=== PATIENT | female | born 1935 | race Caucasian/White ===

== ENCOUNTER 2017-10-26 20:30 | Emergency (ER) | payer OTHER ==
[~2017-10-26] VITALS: Ht 167.6 cm; Wt 72.6 kg
[~2017-10-26 20:30] MED LIST: ACET325 PO; ALEN70 PO; ASPI81CH PO; BUDESONIDE EC3 MG PO; CALCIUM 600 +1 EAC1 PO; CARBI50; CEFD300; CEPH500 PO; COLE625 PO; CRANBERRY250 MG PO; DONE5 PO; FISH1000 PO; GLUC500 PO; Humalog100 UNIT/1 SC; INSLI100I; INSULANI; INSULANPEN SC; LEVSOD50 PO; LOSA25 PO; LOSHYD; MELA3 PO; NIFE30ER; NIFE90ER PO; OMEP20ER PO; PROBIOTIC1 EAC1 PO; TRAM50 PO; Ultram50 MG PO; VALS80 PO
[2017-10-26] MEDS ORDERED: DONEPEZIL HCL5 MG PO (20:49)
[2017-10-26] MEDS ORDERED: ALEN70 PO (20:50)
== END 2017-10-26 23:29 | disposition home or self-care (01) ==
LOC: ER 20:30
DX: M25.562 Pain in left knee (principal); W18.30XA Fall on same level, unspecified, initial encounter; Z79.82 Long term (current) use of aspirin; Z79.899 Other long term (current) drug therapy; Z79.4 Long term (current) use of insulin; E11.9 Type 2 diabetes mellitus without complications; I10 Essential (primary) hypertension; Z87.891 Personal history of nicotine dependence
CPT/HCPCS: 73562-LT; 99283

== ENCOUNTER 2017-11-04 17:06 | Emergency (ER) | payer OTHER ==
[~2017-11-04] VITALS: Ht 170.2 cm; Wt 66.7 kg
[~2017-11-04 17:06] MED LIST changes: -CARBI50; +Carbidopa-Levo1 EAC1 PO; +DONEPEZIL HCL5 MG PO
[2017-11-04] MEDS ORDERED: Tylenol325 MG PO (18:45)
[2017-11-04] MEDS ORDERED: HYDR1TAB94 PO (20:18)
[2017-11-06] MEDS ORDERED: INSULANPEN SC (02:49)
[2017-11-06] MEDS ORDERED: Humalog100 UNIT/3 SC (02:51)
[2017-11-06] MEDS ORDERED: GLUCERNA237 ML PO (02:55)
[2017-11-06] MEDS ORDERED: HYDROCODONE-ACET5 ML PO (02:59)
[2017-11-06] MEDS ORDERED: Tears Again15 ML RIGHTEYE (03:01)
[2017-11-06] MEDS ORDERED: REFRESH OPTIVE1 EACH LEFTEYE (03:02)
[2017-11-08] MEDS ORDERED: CEFU500T30 PO (11:39)
[2017-11-08] MEDS ORDERED: TRAM50 PO (11:43)
[2017-11-08] MEDS ORDERED: Miralax17 GM PO (11:45)
== END 2017-11-04 21:18 | disposition home or self-care (01) ==
LOC: ER 17:06
DX: M79.662 Pain in left lower leg (principal); E11.9 Type 2 diabetes mellitus without complications; I10 Essential (primary) hypertension; Z79.899 Other long term (current) drug therapy; Z79.4 Long term (current) use of insulin; Z79.82 Long term (current) use of aspirin; Z87.891 Personal history of nicotine dependence
CPT/HCPCS: 29505; 73502; 73562-RT; 93971; 99284

== ENCOUNTER 2018-04-30 12:18 | Emergency (ER) | payer OTHER ==
[~2018-04-30] VITALS: Ht 167.6 cm; Wt 67.1 kg
[~2018-04-30 12:18] MED LIST changes: +CEFU500T30 PO; +GLUCERNA237 ML PO; +HYDR1TAB94 PO; +HYDROCODONE-ACET5 ML PO; +Humalog100 UNIT/1; +Humalog100 UNIT/3 SC; +INSULANPEN IM; +LOSA50 PO; +Miralax17 GM PO; +Multivitamin1 EAC1 PO; +NATURAL BALANCE15 ML RIGHTEYE; +PREVALITE PAC4 G/PKT PO; +REFRESH OPTIVE1 EACH LEFTEYE; +Tears Again15 ML RIGHTEYE; +Tylenol325 MG PO; +Vitamin D400 UNI2 PO
[2018-04-30 12:52] LABS: BASOPHILS ABSOLUTE AUTO 0.05 K/mm3 (0.00-0.23); BASOPHILS PERCENT AUTO 1 % (0-2); EOSINOPHILS ABSOLUTE AUTO 0.11 K/mm3 (0.00-0.68); EOSINOPHILS PERCENT AUTO 1 % (0-6); Hematocrit 40.7 % (33.0-51.0); Hemoglobin 13.5 g/dL (11.5-16.0); IMMATURE GRAN ABSOLUTE AUTO 0.03 K/mm3 (0.00-0.10); IMMATURE GRAN PERCENT AUTO 0 % (0-1); LYMPHOCYTES ABSOLUTE AUTO 2.26 K/mm3 (0.84-5.20); LYMPHOCYTES PERCENT AUTO 28 % (21-46); MONOCYTES ABSOLUTE AUTO 0.48 K/mm3 (0.16-1.47); MONOCYTES PERCENT AUTO 6 % (4-13); Mean Corpuscular HGB 32.8 pg (26.0-34.0); Mean Corpuscular HGB Conc 33.2 g/dL (31.5-36.5); Mean Corpuscular Volume 99 fL (80-100); Mean Platelet Volume 10.5 fL (9.1-12.4); NEUTROPHILS ABSOLUTE AUTO 5.05 K/mm3 (1.96-9.15); NEUTROPHILS PERCENT AUTO 63 % (41-73); Platelet Count 319 K/mm3 (150-400); RDW Coefficient Variation 13.7 % (11.7-14.2); RDW Standard Deviation 49.8 fL (35.1-46.3); Red Blood Cell Count 4.11 M/mm3 (3.80-5.20); White Blood Cell Count 7.98 K/mm3 (4.00-11.30)
[2018-04-30 13:07] LABS: Alanine Aminotransfer (ALT/SGP 11 U/L (12-78); Albumin, Blood 3.2 g/dL (3.4-5.0); Albumin/Globulin Ratio 0.9 (0.8-1.8); Alk Phos 68 U/L (50-136); Anion Gap 8 mmol/L (6-16); Aspartate Aminotrans (AST/SGOT 11 U/L (12-37); Bilirubin, Total 0.5 mg/dL (0.1-1.0); Blood Urea Nitrogen 10 mg/dL (8-24); Bun/Creatinine Ratio 16.1 (12.0-20.0); CO2, Blood 26 mmol/L (21-32); Calcium, Blood 8.7 mg/dL (8.5-10.1); Chloride, Blood 105 mmol/L (98-108); Creatinine, Blood 0.62 mg/dL (0.40-1.00); Globulin, Blood 3.7 g/dL (2.2-4.0); Glomerular Filtration Rate >60 (60-); Glucose, Blood 217 mg/dL (70-99); Potassium, Blood 3.8 mmol/L (3.5-5.5); Sodium, Blood 139 mmol/L (136-145); Total Protein, Blood 6.9 g/dL (6.4-8.2); Troponin I <0.015 ng/mL (0.000-0.040)
== END 2018-04-30 16:55 | disposition home or self-care (01) ==
LOC: ER 12:18
PROVIDERS: Physician Assistant
DX: R07.9 Chest pain, unspecified (principal); Z79.899 Other long term (current) drug therapy; Z79.82 Long term (current) use of aspirin; Z79.4 Long term (current) use of insulin; E11.9 Type 2 diabetes mellitus without complications; I10 Essential (primary) hypertension; Z87.891 Personal history of nicotine dependence
CPT/HCPCS: 71046; 80053; 84484; 85025; 93005; 93010; 99285-25

== ENCOUNTER 2018-05-08 06:17 | Emergency (ER) | payer OTHER ==
[~2018-05-08] VITALS: Ht 162.6 cm; Wt 70.3 kg
[~2018-05-08 06:17] MED LIST changes: -INSULANPEN IM; +INSULANPEN IV
== END 2018-05-08 07:32 | disposition home or self-care (01) ==
LOC: ER 06:17
DX: Z04.3 Encounter for examination and observation following other accident (principal); E11.9 Type 2 diabetes mellitus without complications; I10 Essential (primary) hypertension; G20 Parkinson's disease; F02.80 Dementia in other diseases classified elsewhere, unspecified severity, without behavioral disturbance, psychotic disturbance, mood disturbance, and anxiety; Z79.899 Other long term (current) drug therapy; Z79.4 Long term (current) use of insulin; Z79.82 Long term (current) use of aspirin; Z87.891 Personal history of nicotine dependence; W18.30XA Fall on same level, unspecified, initial encounter
CPT/HCPCS: 99283